=== PATIENT | female | born 1970 | race Caucasian/White ===

== ENCOUNTER 2017-01-01 13:29 | Emergency (ER) | payer OTHER ==
[~2017-01-01 13:29] MED LIST: ADVAIR 1001 DISK W/D PO; ALBUTEROL17 GM INH; CARAFATE1 G; CARAFATE1 G PO; DOXYCYCLINE PO; FLEXERIL10 MG PO; HYDROCODON-ACE1 EAC7 PO; KEFLEX PO; LORTAB 10-5001 EACH PO; LORTAB 5/500 TA1 TA1 PO; MEDROL4 MG/DOSE- PO; MORGIDOX100 MG PO; NORCO 5/325 TAB1 TAB PO; PEPCID PO; PHENERGAN25 MG PO; PREDNISONE1 MG PO; PREDNISONE10 MG/DOSE PO; PRILOSEC20 MG DOB; PROVENTIL17 GM IH; SINGULAIR PO; TUSSIN MAX15 MG/5 M1 PO; TUSSIONEX PENN473 ML PO; TYLOX 5/500 CAP1 CAP PO; ULTRACET TABLET1 TAB PO; VIBRAMYCIN100 M1 PO; VICODIN 5/500 T1 TAB PO; ZITHROMAX1 G/PKT PO
== END 2017-01-01 13:30 | disposition home or self-care (01) ==
LOC: CFTX 13:29
DX: K08.89 Other specified disorders of teeth and supporting structures (principal); F17.210 Nicotine dependence, cigarettes, uncomplicated; J45.909 Unspecified asthma, uncomplicated; Z88.0 Allergy status to penicillin
CPT/HCPCS: 99283